=== PATIENT | male | born 1985 | race Caucasian/White ===

== ENCOUNTER → 2021-06-04 14:29 | Outpatient (BNVA) | payer SELFPAY | PROVIDERS: PCP Family Medicine Adult Medicine; Visit Provider Physician Assistant Medical | DX: Z02.79 Encounter for issue of other medical certificate (principal) ==

== ENCOUNTER 2025-05-29 17:28 | Emergency (ER) | payer SELFPAY ==
--- NOTE | ~2025-05-29 | XR_ITS ---
CLINICAL HISTORY: pain 3 views lumbar spine Comparison: None provided Findings: Grade 1 anterolisthesis at L4-5. Otherwise alignment is maintained. Vertebral body height is maintained. No acute fractures identified. L5-S1 mild degenerative disc disease. L4-5 and L5-S1 facet arthropathy. IMPRESSION: 1. No acute findings. 2. L4-5 grade 1 anterolisthesis and L5-S1 mild degenerative changes. This document has been electronically signed by: Martha Chacon MD on 05/29/2025 18:17:18
--- NOTE | ~2025-05-29 | XR_ITS ---
CLINICAL HISTORY: pain 2 view chest x-ray Comparison: None provided Findings: Heart size is normal. No consolidation, pleural effusion or pneumothorax. No acute fracture. IMPRESSION: 1. No acute findings. This document has been electronically signed by: Martha Chacon MD on 05/29/2025 18:16:26
[2025-05-29 17:30] VITALS: BP 179/100; PULSE 107; RESP 14; TEMP 36.2; O2SAT 95; BMI 48.6
--- NOTE | 2025-05-29 17:33 | ED.GENADULT ---
[facility] - General Adult General Chief complaint: Back Pain/Injury Stated complaint: lower back pain Time Seen by Provider: 05/29/25 20:10 Source: patient Mode of arrival: ambulatory Limitations: no limitations History of Present Illness ED Provider: Dr. Colyb [facility] narrative: 39-year-old male presented hospital today for bilateral lower back pain that radiates up to both sides. He has described this is a pleuritic nature. Worsened when he takes a deep breath in and out. Patient did take attempt to take Tylenol at home without any alleviation. Denies any trauma. Denies any dysuria or hematuria. Related Data Previous Rx's ?Medication ?Instructions ?Recorded acetaminophen 500 mg tablet 1,000 mg (2 x 500 mg) PO Q8H #30 05/30/25 tabs cyclobenzaprine 5 mg tablet 5 mg PO TID PRN muscle spasm #20 05/30/25 tabs lidocaine 4 % topical patch 1 patch topical DAILY PRN pain #10 05/30/25 ea Allergies Allergy/AdvReac Type Severity Reaction Status Date / Time No Known Allergies Allergy Verified 05/29/25 17:33 Review of Systems Review of Systems: Pertinent review of systems as mentioned in HPI. All other system otherwise negative. [facility] Past Medical History [facility] Narrative: Medical history as mentioned in [facility] Social History Social History (System 08/13/23 @ 15:02 by Venice Duran) Smoked in Last 30 Days: No Use of substances other than those prescribed or required for medical reasons: No Advance Directives: No Advance Directives Information Provided: Yes Do you have a plan to hurt others: No Plan Physical Exam ED Exam Exam: General: Pleasant, no distress, interacting appropriately Head: Normacephalic, atraumatic ENT: oral mucosa moist, neck supple, no tracheal deviation Gastrointestinal: Soft, non distended, non tender, non guarding Extremities: Lower back pain on palpation, bilaterally, Neurological: Awake and alert, no facial droop noted Skin: Warm and dry Psychiatric: Appropriate mood and thoughts Vital Signs: Vital Signs - 24 hr 05/29/25 17:30 05/29/25 17:53 05/29/25 18:19 Temperature 97.2 F 98.5 F 98.6 F Pulse Rate 107 H 105 H 83 Respiratory Rate 14 18 15 Blood Pressure 179/100 H 150/84 H 134/83 Pulse Oximetry 95 96 95 Oxygen Delivery Method Room Air Room Air Room Air 05/29/25 20:08 05/29/25 23:10 05/30/25 00:13 Temperature 98.4 F 98.4 F 98.4 F Pulse Rate 85 80 80 Respiratory Rate 17 Blood Pressure 140/89 H 118/74 118/74 Pulse Oximetry 95 95 95 Oxygen Delivery Method Room Air Room Air Room Air BMI result Body Mass Index 48.6 Course Course Course Narrative: Rapid medical examination performed in triage by Jayde Anthony PA-C. Patient is a 39 year old assigned male at presenting to the emergency department with back pain - worse with deep breathing since yesterday. Detailed physical exam and review of systems are deferred to the primary teaching assistant. Imaging ordered. Patient placed back in the waiting room pending room availability and results. Medications Administered Discontinued Medications Generic Name Dose Route Start Last Admin Trade Name Freq PRN Reason Stop Dose Admin Diazepam 5 mg 05/29/25 20:47 05/29/25 21:07 Diazepam 5 Mg Tablet PO 05/29/25 20:48 5 mg ONCE ONE Administration Ketorolac Tromethamine 30 mg 05/29/25 20:47 05/29/25 21:08 Ketorolac Tromethamine 30 Mg/Ml Vial IM 05/29/25 20:48 30 mg ONCE ONE Administration Lidocaine 1 patch 05/29/25 20:47 05/29/25 21:07 Lidocaine 4 % Patch Adh..Patch TRANSDERMA 05/29/25 20:48 1 patch ONCE ONE Administration Protocol Medical Decision Making Medical Decision Making MDM Narrative: A 39-year-old male presented hospital today for bilateral lower back pain that is pleuritic in nature. Patient does admit to taking testosterone. We will plan to obtain a D-dimer. Rule out PE. Patient does not appear to be in acute distress at this time. I suspect this is musculoskeletal in nature. There was no signs of hematuria or dysuria. I have low suspicion for kidney stone. Given the bilateral nature of his pain. X-ray was performed the patient's lumbar spine. Shows mild degenerative changes. No sign of acute fracture. D-dimer is negative. I did give patient some Valium. With some improvement. Patient will be discharged home with muscle relaxer and lidocaine patch to take. Instruct patient to take Tylenol around the clock as well. He agrees and understands this plan. Return precautions provided. Differential Diagnosis Differential Diagnoses: The differential diagnosis associated with the presentation includes Musculoskeletal lumbar strain, nephrolithiasis, lumbar fracture Lab Data Labs: Lab Results 05/29/25 Range/Units 20:59 D-Dimer High Sensitivty 165 NG/ML Independent Interpretation I performed an independent interpretation of an: Plain X-Ray Radiology Impression Discussion of test interpretation with radiology: I have reviewed the radiologist's reading. Discharge Plan Discharge Clinical Impression: Strain of lumbar region Patient Disposition: Home, Self-Care Instructions: Back Pain (ED), Lower Back Exercises (ED) Prescriptions: New lidocaine 4 % adhesive patch,medicated 1 patch topical DAILY PRN (Reason: pain) Qty: 10 0RF cyclobenzaprine 5 mg tablet 5 mg PO TID PRN (Reason: muscle spasm) Qty: 20 0RF acetaminophen 500 mg tablet 1,000 mg PO Q8H Qty: 30 0RF Interventions: ED Discharge Assessment Last Done: 05/30/25 00:13 Discharge Date/Time: 05/30/25 00:14 Print Language: [place]
[2025-05-29 17:53] VITALS: BP 150/84; PULSE 105; RESP 18; TEMP 36.9; O2SAT 96
--- OUTSIDE RECORDS SUMMARY | 2025-05-29 18:07 | XMS_ITS | Clinical Summary ---
Author Organization [facility] Address [address] [place] [address] Care Team Providers Care Rn [employer] Name Role Phone Unavailable Primary Care Provider Unavailabl e Allergies No known active allergies Medications Medication Sig Dispensed Refills Start Date End Date Status ibuprofen 600 MG tablet Take 1 tablet (600 mg total) by mouth every 6 (six) hours as needed for pain. 20 tablet 0 08/20/2022 Active Social History Tobacco Use Types Packs/Day Years Used Date Smoking Tobacco: Never Smokeless Tobacco: Never Tobacco Cessation:Counseling Given: Not Answered Alcohol Use Standard Drinks/Week Comments Yes 0 (1 standard drink = 0.6 oz pur e alcohol) Sex and Gender Information Value Date Recorded Sex Assigned at Male 08/20/2022 10:37 AM EST Gender Identity Male 08/20/2022 10:37 AM EST Sexual Orientation Straight 08/20/2022 10 :37 AM EST Job Start Date Occupation Industry Not on file Not on file Not on file Last Filed Vital Signs Vital Sign Reading Time Taken Comments Blood Pressure 140/84 08/20/2022 5:52 PM EST Pulse 65 08/20/2022 5:52 PM EST Temperature 36.8 C (98.2 F) 08/20/2022 5:52 PM EST Respiratory Rate 19 08/20/2022 5:52 PM EST Oxygen Saturation 97% 08/20/2022 5:52 PM EST Inhaled Oxygen Concentration - - Weight 136.1 kg (300 lb) 08/20/2022 10:38 AM EST Height 170.2 cm (5' 7 ) 08/20/2022 10:38 AM EST Body Mass Index 46.99 08/20/2022 10:38 AM EST Plan of Treatment Health Maintenance Due Date Last Done Comments Hepatitis B Vaccines (1 of 3 - 3-dose series) 1983 Hepatitis C Screening 1983 COVID-19 Vaccine (#1) 01/30/1984 Depression Screening 1995 Preventative Health Evaluation 2001 DTap / Tdap / Td (1 - Tdap) 2002 Influenza Vaccine (#1) 2025 Pneumococcal Vaccine Aged Out No long er eligible based on patient's age to complete this topic RSV Ped < 20 months Aged Out No longe r eligible based on patient's age to complete this topic
[2025-05-29 18:19] VITALS: BP 134/83; PULSE 83; RESP 15; TEMP 37; O2SAT 95
--- NOTE | 2025-05-29 19:23 | PC.NURSE ---
this rn assumed care of pt, pt resting in stretcher, reports lower back pain at this time, awaiting provider at this time
[2025-05-29 20:08] VITALS: BP 140/89; PULSE 85; TEMP 36.9; O2SAT 95
[2025-05-29] MEDS: Lidocaine 4 % Patch ADH..PATCH 1 PATCH TRANSDERMA (21:07)
[2025-05-29 21:11] LABS: D Dimer High Sensitivity 165 NG/ML
[2025-05-29 23:10] VITALS: BP 118/74; PULSE 80; TEMP 36.9; O2SAT 95
[2025-05-30 00:13] VITALS: BP 118/74; PULSE 80; RESP 17; TEMP 36.9; O2SAT 95
== END 2025-05-30 00:14 | disposition home or self-care (01) ==
PROVIDERS: Emergency Provider Student in an Organized Health Care Education/Training Program
DX: S39.012A Strain of muscle, fascia and tendon of lower back, initial encounter (principal); X58.XXXA Exposure to other specified factors, initial encounter; Y93.9 Activity, unspecified; Y92.9 Unspecified place or not applicable; Y99.9 Unspecified external cause status
CPT/HCPCS: 36415; 71046; 72100; 85379; 96372; 99284; J1885

== ENCOUNTER → 2025-05-29 17:34 | Outpatient (BNV) | payer SELFPAY | PROVIDERS: Visit Provider Specialist | DX: M51.370 Other intervertebral disc degeneration, lumbosacral region with discogenic back pain only (principal); R07.9 Chest pain, unspecified | CPT/HCPCS: 71046; 72100 ==